=== PATIENT | male | born 1955 | race Caucasian/White ===

== ENCOUNTER 2020-07-02 15:27 | Emergency (ER) | payer OTHER ==
[~2020-07-02] VITALS: Ht 180.3 cm; Wt 113.4 kg
[2020-07-02] MEDS ORDERED: METOPROLOL SUC100 MG PO (15:42)
[2020-07-02] MEDS ORDERED: MONTELUKAST SOD10 MG PO (15:42)
[2020-07-02] MEDS ORDERED: MOMETASONE FURO17 GM NAS (15:42)
[2020-07-02] MEDS ORDERED: LANSOPRAZOLE30 MG PO (15:42)
== END 2020-07-02 21:30 | disposition home or self-care (01) ==
LOC: ED 15:27
DX: R17 Unspecified jaundice (principal); Z87.891 Personal history of nicotine dependence
CPT/HCPCS: 76705; 80053; 81001; 83690; 85025; 99284-25; J7030

== ENCOUNTER 2020-09-29 07:24 | Day surgery (SDC) | payer OTHER ==
[~2020-09-29] VITALS: Ht 180.3 cm; Wt 108.9 kg
[~2020-09-29 07:24] MED LIST: ACETAMINOPHEN500 MG PO; DOXYCYCLINE HY100 MG PO; IBUPROFEN600 MG PO; LANSOPRAZOLE30 MG PO; METOPROLOL SUC100 MG PO; MOMETASONE FURO17 GM NAS; MONTELUKAST SOD10 MG PO; OXYCODON-ACETA1 EAC2 PO
--- NOTE | 2020-09-29 09:07 | NUR ---
09/29/20 0907 Alva Ames 0902- PT ARRIVES TO PACU AWAKE ON HIS OWN. PT REPORTS NO PAIN OR NAUSEA. RESP EVEN AND UNLABORED. OXYGEN SAT HIGH 90'S ON 3L VIA NC.
--- NOTE | 2020-09-30 18:46 | PATH ---
[facility] [address] [place], [place] [address] Signed SPECIMEN(S): A CECAL POLYP SPECIMEN(S): B COLON POLYP 50 CM SPECIMEN(S): C SIGMOID POLYP SPECIMEN SOURCE: A. CECAL POLYP B. COLON POLYP 50 CM C. SIGMOID POLYP CLINICAL HISTORY: Family hx colon Ca; positive Cologuard test, diverticulosis. Post-op diag: Polyps x 3; diverticulosis. MICROSCOPIC DESCRIPTION: Histologic sections of all submitted blocks are examined by light microscopy. These findings, together with the gross examination, support the pathologic diagnosis. FINAL PATHOLOGIC DIAGNOSIS: A. Colon, cecum, polyp, polypectomy: - Tubular adenoma. - Negative for high-grade dysplasia or malignancy. B. Colon, polyp at 50 cm, polypectomy: - Fragments of colonic mucosa with no histopathologic abnormality. - Negative for dysplasia or malignancy. C. Colon, sigmoid, polyp, polypectomy: - Hyperplastic polyp. - Negative for dysplasia or malignancy. COMMENT: Regarding specimen B: Multiple additional deeper levels were examined. NAL:cml:C2NR GROSS DESCRIPTION: Three specimens are received in three containers, labeled "RS." A. The specimen, labeled "RS, cecum polyp," is received in formalin and consists of two serrato soft tissue fragment(s) that measure 0.1-0.2 cm in greatest dimension. The specimen is entirely submitted in cassette (A1). B. The specimen, labeled "RS, colon polyp at 50 cm," is received in formalin and consists of two serrato soft tissue fragment(s) that measure 0.1-0.2 cm in greatest dimension. The specimen is entirely PATIENT NAME: DIVYA HERNANDEZ PATHOLOGY DATE OF : 51 REPORT #: [id number] PHYSICIAN: ARNULFO BLAKELY PCP: AURY LOTT MD REPORT IS CONFIDENTIAL AND NOT TO BE RELEASED WITHOUT AUTHORIZATION [facility] [address] [place] [address] Signed submitted in cassette (B1). C. The specimen, labeled "RS, sigmoid colon polyp," is received in formalin and consists of four serrato soft tissue fragment(s) that measure 0.2 cm in greatest dimension. The specimen is entirely submitted in cassette (C1). JS (under the direct supervision of a pathologist) The Gross Description was prepared using a voice recognition system. The report was reviewed for accuracy; however, sound-alike word errors, addition and/or deletions may occur. If there is any question about this report, please contact Client Services. PERFORMING LABORATORY: The technical component was performed by [facility] [address] (Spa Supervisor: Sarah Sharma MD; CLIA# [id number]). [facility], [address] [address] (CLIA# [id number]). Diagnostician: Aissatou Mayes MD Pathologist Electronically Signed 09/30/2020 Copies: ~ PATIENT NAME: DIVYA HERNANDEZ PATHOLOGY DATE OF : 51 REPORT #: [id number] PHYSICIAN: ARNULFO PATHOLOGY PCP: AURY LOTT MD REPORT IS CONFIDENTIAL AND NOT TO BE RELEASED WITHOUT AUTHORIZATION
--- NOTE | 2020-10-06 14:31 | OR ---
[facility] [address] [place], [place] [address] Signed DATE OF OPERATION: 09/29/2020 SURGEON: Isac Holland MD PREOPERATIVE DIAGNOSES: 1. Positive Cologuard test. 2. Positive family history of colon cancer (paternal grandmother). POSTOPERATIVE DIAGNOSES: 1. Sigmoid diverticulosis. 2. Small polyp x3. PROCEDURES: Total colonoscopy to cecum with cold morcellation polypectomy x3. ANESTHESIA: Intravenous sedation, fentanyl 100 mcg and Versed 5 mg. INDICATIONS: This 64-year-old white man is a patient Dr. Evans. He is noted to have a family history of colon cancer in a paternal grandmother. He has no symptoms of bleeding, diarrhea, or constipation. He did undergo Cologuard test, which was positive. He had colonoscopy in 2010, which showed only diverticulosis. He is admitted at this time to undergo colonoscopy on the basis of positive Cologuard test, understands the risks of bleeding, infection, perforation, and so on. FINDINGS: The prep was good. Complete colonoscopy was undertaken to the cecum without question. He had three small polyps, one was in the cecum, another at 50 cm in the left colon, and other at the rectosigmoid, all were excised with cold morcellation technique. He had small diverticula in the sigmoid and left colon as well. There were no other findings of concern. DESCRIPTION OF PROCEDURE: The patient was brought to the endoscopy suite and placed in lateral decubitus position. Given intravenous sedation to the point of slurred speech and nystagmus. Digital rectal examination was normal. An Olympus video colonoscope was passed into the rectum and manipulated throughout the colon, ultimately intubating the cecum itself. The ileocecal valve and appendiceal Electronically Signed By: ISAC HOLLAND MD 10/06/20 1431 PATIENT NAME: DIVYA HERNANDEZ OPERATIVE REPORT DATE OF : 51 REPORT #: [id number] PHYSICIAN: ISAC HOLLAND MD PCP: GEORGE EVANS MD REPORT IS CONFIDENTIAL AND NOT TO BE RELEASED WITHOUT AUTHORIZATION [facility] [address] [place], [place] [address] Signed orifice were normal. A very small polyp in the cecum was noted, this was excised with cold morcellation technique. The scope was withdrawn with careful inspection throughout, showed no sign of abnormality until approximately 50 cm from the anal verge, where another small polyp was noted, this was excised with cold morcellation technique as well. The scope was withdrawn. Diverticular changes were once again noted in the sigmoid. At the rectosigmoid, there were two small polyps in the same general area, both excised with cold morcellation technique and passed in a single specimen container. Retroflexed view of the rectum was normal. Scope was then removed. The patient was taken to the recovery room in good condition. CONCLUDING DIAGNOSES: 1. Small polyps x3. 2. Diverticulosis. PLAN: Recommend repeat colonoscopy in 5 years or sooner if clinically indicated. He will return to the ongoing care of Dr. Evans otherwise. MD LENNY Heath/ALVAREZL /[id number] cc: George Evans MD Copies: GEORGE EVANS MD ~ Electronically Signed By: ISAC HOLLAND MD 10/06/20 1431 PATIENT NAME: DIVYA HERNANDEZ OPERATIVE REPORT DATE OF : 51 REPORT #: [id number] PHYSICIAN: ISAC HOLLAND MD PCP: GEORGE EVANS MD REPORT IS CONFIDENTIAL AND NOT TO BE RELEASED WITHOUT AUTHORIZATION
== END 2020-09-29 09:50 | disposition home or self-care (01) ==
LOC: DS 07:24 → OPS 07:24 → DS 08:30 → OPS 08:30
PROVIDERS: ATTEND Surgery
PROC: 0DBN8ZX Excision of Sigmoid Colon, Via Natural or Artificial Opening Endoscopic, Diagnostic (ICD-10-PCS; 2020-09-29)
PROC: 0DBG8ZX Excision of Left Large Intestine, Via Natural or Artificial Opening Endoscopic, Diagnostic (ICD-10-PCS; 2020-09-29)
PROC: 0DBH8ZX Excision of Cecum, Via Natural or Artificial Opening Endoscopic, Diagnostic (ICD-10-PCS; principal; 2020-09-29 08:30)
DX: D12.0 Benign neoplasm of cecum (principal); K63.5 Polyp of colon; K57.30 Diverticulosis of large intestine without perforation or abscess without bleeding; I10 Essential (primary) hypertension; Z80.0 Family history of malignant neoplasm of digestive organs
CPT/HCPCS: 99153; G0500; J2250; J3010; J7121

== ENCOUNTER 2021-11-12 10:33 | Emergency (ER) | payer OTHER ==
[~2021-11-12] VITALS: Ht 180.3 cm; Wt 108.9 kg
== END 2021-11-12 14:16 | disposition home or self-care (01) ==
LOC: ED 10:33
DX: H53.2 Diplopia (principal); I10 Essential (primary) hypertension; Z87.891 Personal history of nicotine dependence; Z79.899 Other long term (current) drug therapy
CPT/HCPCS: 36415; 70470; 80053; 83605; 85025; 96360; 96361; 99284-25; J7030; Q9967

== ENCOUNTER 2022-02-12 14:50 | Emergency (ER) | payer OTHER ==
[~2022-02-12] VITALS: Ht 180.3 cm; Wt 103.5 kg
[2022-02-12] MEDS ORDERED: CLARITHROMYCIN500 MG PO (15:44)
[2022-02-12] MEDS ORDERED: PREDNISONE5 MG PO (15:45)
[2022-02-12] MEDS ORDERED: FAMOTIDINE40 MG PO (15:45)
[2022-02-12] MEDS ORDERED: LOSARTAN POTASS50 MG PO (15:46)
[2022-02-12] MEDS ORDERED: ONDANSETRON ODT4 MG PO (19:46)
[2022-02-12] MEDS ORDERED: MECLIZINE HCL25 MG PO (19:46)
[2022-02-12] MEDS ORDERED: PSEUDOEPHEDRINE30 MG PO (19:46)
== END 2022-02-12 20:04 | disposition home or self-care (01) ==
LOC: ED 14:50
DX: R51.9 Headache, unspecified (principal); R42 Dizziness and giddiness; I10 Essential (primary) hypertension; Z87.891 Personal history of nicotine dependence; Z79.899 Other long term (current) drug therapy; Z79.52 Long term (current) use of systemic steroids
CPT/HCPCS: 36415; 70450; 80053; 85025; 85651; 86140; 96361; 96374; 96375; 99284-25; A9270; J0780; J1100; J1200; J1885; J2765; J7030

== ENCOUNTER 2022-06-10 12:57 | Day surgery (SDC) | payer OTHER ==
[~2022-06-10] VITALS: Ht 180.3 cm; Wt 101.4 kg
[~2022-06-10 12:57] MED LIST changes: +ACYCLOVIR200 MG PO; +CLARITHROMYCIN500 MG PO; +FAMOTIDINE40 MG PO; +LOSARTAN POTASS50 MG PO; +MECLIZINE HCL25 MG PO; +ONDANSETRON ODT4 MG PO; +PREDNISONE5 MG PO; +PSEUDOEPHEDRINE30 MG PO
[2022-06-10] MEDS ORDERED: [UNRECOGNIZED DRUG - OTHER] PO (13:32)
[2022-06-10] MEDS ORDERED: KRILL OIL500 MG PO (13:33)
--- NOTE | 2022-06-10 15:08 | NUR ---
PT RESTING IN BED WATCHIN TV. THIS RN GAVE PT WARM BLANKET PER PT REQUEST. PT DENIES FURTHER NEEDS. CALL LIGHT WITHIN REACH.
--- NOTE | 2022-06-10 15:47 | NUR ---
06/10/22 1546 Alva Ames 1542- PT ARRIVES TO PACU AWAKE AND TALKING. PT REPORTS NO PAIN OR NAUSEA. RESP EVEN AND UNLABORED. OXYGEN SAT HIGH 90'S ON 2L VIA CO2 NC.
--- NOTE | 2022-06-11 10:58 | OR ---
[facility] [address] [place], [place] [address] Signed DATE OF OPERATION: 06/10/2022 SURGEON: Isac Holland MD PREOPERATIVE DIAGNOSIS: Longstanding gastroesophageal reflux; onset of dysphagia related to change of PPI medication to H2 melanie. POSTOPERATIVE DIAGNOSIS: Minimal distal Schatzki ring and small hiatal hernia. PROCEDURE: Esophagogastroduodenoscopy with biopsy. ANESTHESIA: Intravenous sedation, fentanyl 100 mcg and Versed 5 mg. INDICATIONS: This 66-year-old white man is a patient of Dr. Evans. He has longstanding reflux disease. He had been doing well with PPI medication, his primary means of treatment, but the medicine was changed to an H2 melanie on the theoretic risks associated with chronic PPI use. Over time, he had recurrence of his dysphagia, significant reflux symptoms and so on. The patient additionally has some significant neuro-ophthalmologic issues, for which he was treated at [facility]. 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 I have advised the patient to return to PPI medication; his use of omeprazole has allowed for resolution of his dysphagia and reflux type symptoms. He is admitted to undergo upper endoscopy to better characterize the problem and specifically to rule out malignancy and/or eosinophilic esophagitis. FINDINGS: He had a minimal Schatzki ring unlikely to account for any symptoms. Notably, his symptoms have resolved regarding reflux and dysphagia since PPI use. Stomach did show small hiatal hernia. There was no evidence of polyp or gastritis. The duodenum was normal. The esophagus had no clinical evidence of eosinophilic esophagitis. There was no evidence of Gatica epithelium. DESCRIPTION OF PROCEDURE: Electronically Signed By: ISAC HOLLAND MD 06/11/22 1058 PATIENT NAME: DIVYA HERNANDEZ OPERATIVE REPORT DATE OF : 51 REPORT #: [id number] PHYSICIAN: ISAC HOLLAND MD PCP: GEORGE EVANS MD REPORT IS CONFIDENTIAL AND NOT TO BE RELEASED WITHOUT AUTHORIZATION [facility] [address] [place], [place] [address] Signed The patient was brought to the endoscopy suite and placed in lateral decubitus position after undergoing topical lidocaine hypopharyngeal spray anesthetic. After satisfactory intravenous sedation with full cardiopulmonary monitoring, a bite block was placed. An Olympus video upper endoscope was passed into the hypopharynx. Vocal cords were normal. Scope was advanced to the esophagus, throughout its length it was normal except in the very distal portion where the very small superficial Schatzki ring was noted. The scope was passed into the stomach, which was insufflated with air. Rugal folds appeared normal as did the antrum. The pylorus was normal, scope was passed through it into the duodenum, which was normal. Biopsies were taken of the duodenum for celiac disease assessment and scope withdrawn. Biopsies taken of the antrum and more proximal stomach. CLOtest biopsies were obtained as well (negative at 20 minutes post procedure). Retroflexed view confirmed a small hiatal hernia. Scope was withdrawn to the distal esophagus. There was no evidence of Gatica epithelium and the Schatzki ring was very well demarcated at that point. The area corresponding to the Schatzki ring was multiply biopsied. Scope was withdrawn and biopsies taken of the midesophagus and ultimately the upper esophagus as well. Vocal cord was visualized as normal. Scope was removed. The patient was taken to the recovery room in good condition. CONCLUDING DIAGNOSIS: Dyspeptic symptoms are much better manage with omeprazole. We are mindful of theoretic risks to long-term PPI use. A good guide regarding the hazards of PPI use is noted in the Nelsy Jonatan 2020. I have reviewed these with the patient. In aggregate, the risks of adverse problems related to PPI use are less than 1% across the board. PLAN: He will return to the ongoing care of Dr. Evans. We will encourage continued use of PPI medication as it is providing great symptom control for him in the past. Alternatively, an operative approach to remedy of the small hiatal hernia is a consideration, though given his other concurrent problems with neuro-ophthalmology and so forth, it would be meddlesome to undertake that at this time. On that basis, we will recommend Prilosec 20 mg p.o. daily. MD LENNY Heath/ALVAREZL /[id number] Electronically Signed By: ISAC HOLLAND MD 06/11/22 1058 PATIENT NAME: DIVYA HERNANDEZ OPERATIVE REPORT DATE OF : 51 REPORT #: [id number] PHYSICIAN: ISAC HOLLAND MD PCP: GEORGE EVANS MD REPORT IS CONFIDENTIAL AND NOT TO BE RELEASED WITHOUT AUTHORIZATION [address] [address] Signed cc: George Evans MD Copies: GEORGE EVANS MD ~ Electronically Signed By: ISAC HOLLAND MD 06/11/22 1058 PATIENT NAME: DIVYA HERNANDEZ OPERATIVE REPORT DATE OF : 51 REPORT #: [id number] PHYSICIAN: ISAC HOLLAND MD PCP: GEORGE EVANS MD REPORT IS CONFIDENTIAL AND NOT TO BE RELEASED WITHOUT AUTHORIZATION
--- NOTE | 2022-06-14 15:52 | PATH ---
[facility] [address] [place], [place] [address] Signed SPECIMEN(S): A DUODENAL BIOPSY SPECIMEN(S): B ANTRUM/PYLORUS BIOPSY SPECIMEN(S): C LOWER ESOPHAGEAL BIOPSY SPECIMEN(S): D MIDDLE ESOPHAGEAL BIOPSY SPECIMEN(S): E PROXIMAL UPPER ESOPHAGEAL BIOPSY SPECIMEN SOURCE: A. DUODENAL BIOPSY B. ANTRUM/PYLORUS BIOPSY C. LOWER ESOPHAGEAL BIOPSY D. MIDDLE ESOPHAGEAL BIOPSY E. PROXIMAL UPPER ESOPHAGEAL BIOPSY CLINICAL HISTORY: GERD, esophagitis, small hiatal hernia, small Schatzki's ring. FINAL PATHOLOGIC DIAGNOSIS: A. Duodenal biopsy: - Benign duodenal mucosa, negative for specific diagnostic abnormality. B. Antrum / pylorus biopsy: - Benign gastric-type mucosa with focal slight chronic inflammation. - Negative for evidence of Helicobacter organisms on routine HE stained sections. C. Lower esophageal biopsy: - Benign gastric and esophageal mucosa with reactive features and mild chronic inflammation. - Negative for specialized intestinal metaplasia or dysplasia. D. Middle esophageal biopsy: - Benign esophageal mucosa with slight reactive features. - Negative for increased epithelial eosinophils. E. Proximal upper esophageal biopsy: - Benign esophageal mucosa, negative for increased epithelial eosinophils. JVR:sm:C2NR MICROSCOPIC EXAMINATION: Histologic sections of all submitted blocks are examined by light microscopy. These findings, together with the gross examination, support the pathologic diagnosis. GROSS DESCRIPTION: A. The specimen, labeled and designated "Tip duodenal biopsy," is received PATIENT NAME: DIVYA HERNANDEZ PATHOLOGY DATE OF : 51 REPORT #: [id number] PHYSICIAN: ARNULFO BLAKELY PCP: AURY LOTT MD REPORT IS CONFIDENTIAL AND NOT TO BE RELEASED WITHOUT AUTHORIZATION [facility] [address] [place], [place] [address] Signed in formalin and consists of two serrato soft tissue fragments, ranging from 0.2-0.3 cm. Entirely submitted in (A1). B. The specimen, labeled and designated "Tip, antrum/pylorus biopsy," is received in formalin and consists of one serrato soft tissue fragment, 0.4 cm. Entirely submitted in (B1). C. The specimen, labeled and designated "Tip, lower esophagus biopsy," is received in formalin and consists of three serrato soft tissue fragments, ranging from 0.3-0.4 cm. Entirely submitted in (C1). D. The specimen, labeled and designated "Tip, middle esophagus biopsy," is received in formalin and consists of one white-serrato tissue fragment, 0.7 cm. Entirely submitted in (D1). E. The specimen, labeled and designated "Tip, proximal upper esophagus biopsies," is received in formalin and consists of two serrato soft tissue fragments, ranging from 0.3-0.4 cm. Entirely submitted in (E1). AC (under the direct supervision of a pathologist) The Gross Description was prepared using a voice recognition system. The report was reviewed for accuracy; however, sound-alike word errors, addition and/or deletions may occur. If there is any question about this report, please contact Client Services. PERFORMING LABORATORY: The technical component was performed by [facility], [address] [place] [id number] (CLIA# [id number]). Professional interpretation was performed by [facility], [address] [place] [address], [place] [address] (CLIA#: [id number]). Diagnostician: Thee Hardin MD Pathologist Electronically Signed 06/14/2022 Copies: ~ PATIENT NAME: DIVYA HERNANDEZ PATHOLOGY DATE OF : 51 REPORT #: [id number] PHYSICIAN: ARNULFO PATHOLOGY PCP: AURY LOTT MD REPORT IS CONFIDENTIAL AND NOT TO BE RELEASED WITHOUT AUTHORIZATION
== END 2022-06-10 16:15 | disposition home or self-care (01) ==
LOC: OPS 12:57 → DS 14:00 → OPS 16:15
PROVIDERS: ATTEND Surgery
PROC: 0DB78ZX Excision of Stomach, Pylorus, Via Natural or Artificial Opening Endoscopic, Diagnostic (ICD-10-PCS; 2022-06-10)
PROC: 0DB68ZX Excision of Stomach, Via Natural or Artificial Opening Endoscopic, Diagnostic (ICD-10-PCS; 2022-06-10)
PROC: 0DB98ZX Excision of Duodenum, Via Natural or Artificial Opening Endoscopic, Diagnostic (ICD-10-PCS; principal; 2022-06-10 14:00)
DX: K22.2 Esophageal obstruction (principal); K29.50 Unspecified chronic gastritis without bleeding; K21.00 Gastro-esophageal reflux disease with esophagitis, without bleeding; K44.9 Diaphragmatic hernia without obstruction or gangrene; H49.9 Unspecified paralytic strabismus; I10 Essential (primary) hypertension
CPT/HCPCS: G0500; J2250; J3010; J7121